=== PATIENT | female | born 1940 ===

== ENCOUNTER 2021-03-18 06:19 | Inpatient (IN) | payer MEDICARE ==
[2021-03-18] VITALS (10 sets, daily range): BP systolic 115–171; BP diastolic 44–95
[~2021-03-18] VITALS: Ht 157.4 cm; Wt 66.4 kg
[2021-03-18 08:34] LABS: BILIRUBIN Negative (Negative); BLOOD Negative (Negative); CLARITY Cloudy (Clear); COLOR Yellow (Yellow); GLUCOSE Negative (Negative); KETONE 2+ (Negative); LEUKO ESTERASE Trace (Negative); NITRITE Negative (Negative); SPECIFIC GRAVITY 1.025 (1.001-1.030); UROBILINOGEN 0.2 E.U./dl (0.0-1.0)
[2021-03-18 08:38] LABS: LYMPH # 0.6 10*3/uL (1.3-4.4); MEAN CELL VOLUME 90.7 fl (81.0-99.0); MEAN CORPUSCULAR HGB 30.1 pg (27.0-31.0); MEAN CORPUSCULAR HGB CONC 33.2 g/dl (33.0-37.0); MONO # 0.1 10*3/uL (0.1-1.0); MONO % 1.9 % (3.0-9.0); NEUT # 5.1 10*3/uL (2.3-7.9); NEUT % 87.8 % (47.0-73.0); PLATELET COUNT AUTOMATED 211 10*3/uL (130-400); RED BLOOD COUNT 4.52 10*6/uL (4.10-5.10); RED CELL DISTRI WIDTH 12.7 % (0-14.5); WHITE BLOOD COUNT 5.8 10*3/uL (4.8-10.8)
[2021-03-18 08:49] LABS: ACT PARTIAL THROMBO TIME 36.8 SECONDS (20.0-32.1); INTERNATIONAL NORM RATIO 1.1 (2.0-3.5)
[2021-03-18 08:53] LABS: ALBUMIN 2.9 gm/dl (3.1-4.5); ALKALINE PHOSPHATASE 71 U/L (45-117); BUN 14 mg/dl (7-24); CHLORIDE 100 mmol/L (98-107); CREATININE 0.78 mg/dL (0.55-1.02); LIPASE 81 U/L (73-393); POTASSIUM 3.6 mmol/L (3.5-5.1); SGOT/AST 48 IU/L (3-35); SGPT/ALT 28 U/L (12-78); SODIUM 132 mmol/L (136-145); TOTAL PROTEIN 6.7 gm/dL (6.4-8.2)
[2021-03-18 08:55] LABS: BACTERIA 1+
[2021-03-18 08:57] LABS: TROPONIN I 0.061 ng/ml (<0.045)
[2021-03-19] VITALS: BP 116/68
[2021-03-19 06:17] LABS: HEMATOCRIT 38.9 % (37.0-47.0); LYMPH # 0.9 10*3/uL (1.3-4.4); LYMPH % 13.7 % (27.0-41.0); MEAN CELL VOLUME 89.2 fl (81.0-99.0); MEAN CORPUSCULAR HGB CONC 33.7 g/dl (33.0-37.0); MEAN PLATELET VOLUME 11.3 fl (9.6-12.3); MONO # 0.3 10*3/uL (0.1-1.0); MONO % 3.6 % (3.0-9.0); NEUT # 5.7 10*3/uL (2.3-7.9); NEUT % 82.3 % (47.0-73.0); PLATELET COUNT AUTOMATED 224 10*3/uL (130-400); RED BLOOD COUNT 4.36 10*6/uL (4.10-5.10); RED CELL DISTRI WIDTH 12.7 % (0-14.5); WHITE BLOOD COUNT 6.9 10*3/uL (4.8-10.8)
[2021-03-19 06:38] LABS: CHLORIDE 101 mmol/L (98-107); POTASSIUM 3.3 mmol/L (3.5-5.1); SODIUM 133 mmol/L (136-145)
[2021-03-19 06:50] LABS: ALBUMIN 2.4 gm/dl (3.1-4.5); ALKALINE PHOSPHATASE 60 U/L (45-117); BUN 22 mg/dl (7-24); CHOLESTEROL 88 mg/dL (<200); CREATININE 0.92 mg/dL (0.55-1.02); FREE T4 1.28 ng/dl (0.76-1.46); LDL CHOLESTEROL 34 mg/dL (9-159); SGOT/AST 52 IU/L (3-35); SGPT/ALT 27 U/L (12-78); TOTAL PROTEIN 6.1 gm/dL (6.4-8.2); TRIGLYCERIDES 73 mg/dl (<150)
[2021-03-19 08:00] VITALS: BP 111/72
[2021-03-19 11:47] LABS: ABG BASE EXCESS -3.3 mmol/L (-2.0-2.0); ARTERIAL BLOOD GAS PH 7.473 (7.35-7.45); ARTERIAL BLOOD GAS PO2 80.7 (80-90)
[2021-03-19 12:00] VITALS: BP 102/63
[2021-03-19 16:00] VITALS: BP 115/79
[2021-03-19 20:00] VITALS: BP 99/65
[2021-03-20] VITALS: BP 110/66
[2021-03-20 06:26] LABS: CHLORIDE 103 mmol/L (98-107); CREATININE 1.04 mg/dL (0.55-1.02); POTASSIUM 4.1 mmol/L (3.5-5.1); SODIUM 136 mmol/L (136-145)
[2021-03-20 06:27] LABS: BUN 38 mg/dl (7-24)
[2021-03-20] MEDS ORDERED: SIMVASTATIN40 MG PO (07:03)
[2021-03-20 08:00] VITALS: BP 128/85
[2021-03-20 12:00] VITALS: BP 122/80
[2021-03-20 16:00] VITALS: BP 107/65
[2021-03-20 20:00] VITALS: BP 111/78
[2021-03-20 23:13] VITALS: BP 115/89
[2021-03-21] VITALS: BP 170/102
[2021-03-21 06:38] LABS: ALBUMIN 2.4 gm/dl (3.1-4.5); BUN 37 mg/dl (7-24); CHLORIDE 106 mmol/L (98-107); CREATININE 0.82 mg/dL (0.55-1.02); POTASSIUM 3.7 mmol/L (3.5-5.1); SGOT/AST 62 IU/L (3-35); SGPT/ALT 41 U/L (12-78); SODIUM 137 mmol/L (136-145)
[2021-03-21 06:39] LABS: ALKALINE PHOSPHATASE 70 U/L (45-117); TOTAL PROTEIN 5.8 gm/dL (6.4-8.2)
[2021-03-21 08:00] VITALS: BP 112/80
[2021-03-21 12:00] VITALS: BP 139/84
[2021-03-21 16:00] VITALS: BP 107/69
[2021-03-21 20:00] VITALS: BP 102/57; BP 139/90
[2021-03-22] VITALS: BP 132/98
[2021-03-22 04:00] VITALS: BP 137/84
[2021-03-22 05:57] LABS: ALBUMIN 2.4 gm/dl (3.1-4.5); BUN 30 mg/dl (7-24); CHLORIDE 108 mmol/L (98-107); POTASSIUM 4.1 mmol/L (3.5-5.1); SGOT/AST 61 IU/L (3-35); SGPT/ALT 42 U/L (12-78); SODIUM 139 mmol/L (136-145); TOTAL PROTEIN 5.7 gm/dL (6.4-8.2)
[2021-03-22 05:58] LABS: ALKALINE PHOSPHATASE 78 U/L (45-117); CREATININE 0.71 mg/dL (0.55-1.02)
[2021-03-22 06:03] LABS: HEMATOCRIT 40.5 % (37.0-47.0); MEAN CELL VOLUME 90.2 fl (81.0-99.0); MEAN CORPUSCULAR HGB 29.8 pg (27.0-31.0); MEAN CORPUSCULAR HGB CONC 33.1 g/dl (33.0-37.0); MEAN PLATELET VOLUME 11.6 fl (9.6-12.3); PLATELET COUNT AUTOMATED 277 10*3/uL (130-400); RED BLOOD COUNT 4.49 10*6/uL (4.10-5.10); RED CELL DISTRI WIDTH 12.7 % (0-14.5); WHITE BLOOD COUNT 7.3 10*3/uL (4.8-10.8)
[2021-03-22 06:37] LABS: ATYPICAL LYMPHS 2 % (0-0); BURR CELLS MODERATE; PLATELET SUFFICIENCY NORMAL (NORMAL); TOTAL CELLS COUNTED 100 #CELLS
[2021-03-22 06:38] LABS: OVALOCYTES FEW
[2021-03-22 07:58] VITALS: BP 131/83
[2021-03-22 12:00] VITALS: BP 127/75
[2021-03-22 16:00] VITALS: BP 147/80
[2021-03-22 20:00] VITALS: BP 158/84
[2021-03-23] VITALS: BP 152/98
[2021-03-23 04:00] VITALS: BP 152/91
[2021-03-23 08:00] VITALS: BP 148/93
[2021-03-23 12:00] VITALS: BP 155/89
[2021-03-23 13:02] LABS: MEAN CORPUSCULAR HGB CONC 33.7 g/dl (33.0-37.0); PLATELET COUNT AUTOMATED 301 10*3/uL (130-400); RED BLOOD COUNT 4.27 10*6/uL (4.10-5.10); RED CELL DISTRI WIDTH 12.9 % (0-14.5)
[2021-03-23 13:22] LABS: ATYPICAL LYMPHS 2 % (0-0); OVALOCYTES FEW; SCHISTOCYTES FEW; TOTAL CELLS COUNTED 100 #CELLS
[2021-03-23 13:23] LABS: ALBUMIN 2.4 gm/dl (3.1-4.5); ALKALINE PHOSPHATASE 99 U/L (45-117); BUN 25 mg/dl (7-24); BURR CELLS FEW; CHLORIDE 109 mmol/L (98-107); CREATININE 0.81 mg/dL (0.55-1.02); PLATELET SUFFICIENCY NORMAL (NORMAL); POTASSIUM 3.8 mmol/L (3.5-5.1); SGOT/AST 39 IU/L (3-35); SGPT/ALT 41 U/L (12-78); SODIUM 142 mmol/L (136-145); TOTAL PROTEIN 5.8 gm/dL (6.4-8.2)
[2021-03-23 15:50] LABS: ARTERIAL BLOOD GAS PH 7.513 (7.35-7.45); ARTERIAL BLOOD GAS PO2 60.7 (80-90)
[2021-03-23 16:00] VITALS: BP 148/82
[2021-03-23 20:00] VITALS: BP 149/98
[2021-03-24] VITALS: BP 106/69
[2021-03-24 04:00] VITALS: BP 108/71
[2021-03-24 05:56] LABS: ALBUMIN 2.1 gm/dl (3.1-4.5); ALKALINE PHOSPHATASE 92 U/L (45-117); BUN 25 mg/dl (7-24); CHLORIDE 111 mmol/L (98-107); CREATININE 0.64 mg/dL (0.55-1.02); POTASSIUM 3.6 mmol/L (3.5-5.1); SGOT/AST 29 IU/L (3-35); SGPT/ALT 37 U/L (12-78); SODIUM 139 mmol/L (136-145); TOTAL PROTEIN 5.3 gm/dL (6.4-8.2)
[2021-03-24 06:12] LABS: HEMATOCRIT 36.7 % (37.0-47.0); MEAN CORPUSCULAR HGB 30.1 pg (27.0-31.0); MEAN CORPUSCULAR HGB CONC 32.7 g/dl (33.0-37.0); MEAN PLATELET VOLUME 11.9 fl (9.6-12.3); PLATELET COUNT AUTOMATED 244 10*3/uL (130-400); RED BLOOD COUNT 3.99 10*6/uL (4.10-5.10); WHITE BLOOD COUNT 7.2 10*3/uL (4.8-10.8)
[2021-03-24 06:47] LABS: OVALOCYTES FEW; PLATELET SUFFICIENCY NORMAL (NORMAL); POLYCHROMASIA SLIGHT; SCHISTOCYTES FEW; TOTAL CELLS COUNTED 100 #CELLS
[2021-03-24 06:48] LABS: BURR CELLS MODERATE
[2021-03-24 08:00] VITALS: BP 133/83
[2021-03-24 12:00] VITALS: BP 141/81
[2021-03-24 16:00] VITALS: BP 144/91
[2021-03-24 20:00] VITALS: BP 131/84
[2021-03-25] VITALS: BP 112/83
[2021-03-25 04:00] VITALS: BP 148/90
[2021-03-25 05:23] LABS: ALBUMIN 2.1 gm/dl (3.1-4.5); BUN 23 mg/dl (7-24); CHLORIDE 109 mmol/L (98-107); CREATININE 0.68 mg/dL (0.55-1.02); POTASSIUM 3.6 mmol/L (3.5-5.1); SGOT/AST 25 IU/L (3-35); SGPT/ALT 34 U/L (12-78); SODIUM 140 mmol/L (136-145); TOTAL PROTEIN 5.3 gm/dL (6.4-8.2)
[2021-03-25 05:24] LABS: ALKALINE PHOSPHATASE 99 U/L (45-117)
[2021-03-25 06:25] LABS: MEAN CELL VOLUME 89.8 fl (81.0-99.0); MEAN CORPUSCULAR HGB 29.6 pg (27.0-31.0); MEAN PLATELET VOLUME 11.6 fl (9.6-12.3); PLATELET COUNT AUTOMATED 269 10*3/uL (130-400); RED BLOOD COUNT 4.12 10*6/uL (4.10-5.10); RED CELL DISTRI WIDTH 12.9 % (0-14.5); WHITE BLOOD COUNT 5.3 10*3/uL (4.8-10.8)
[2021-03-25 07:25] LABS: ATYPICAL LYMPHS 2 % (0-0); TOTAL CELLS COUNTED 100 #CELLS
[2021-03-25 07:26] LABS: BURR CELLS FEW; OVALOCYTES FEW; PLATELET SUFFICIENCY NORMAL (NORMAL); POLYCHROMASIA SLIGHT; SCHISTOCYTES FEW
[2021-03-25 08:00] VITALS: BP 152/103
[2021-03-25 12:00] VITALS: BP 138/89
[2021-03-25 16:00] VITALS: BP 144/89
[2021-03-25 20:00] VITALS: BP 147/90
[2021-03-26] VITALS: BP 143/92
[2021-03-26 04:00] VITALS: BP 160/88
[2021-03-26 06:10] LABS: HEMATOCRIT 37.7 % (37.0-47.0); MEAN CELL VOLUME 92.2 fl (81.0-99.0); MEAN CORPUSCULAR HGB 30.1 pg (27.0-31.0); MEAN CORPUSCULAR HGB CONC 32.6 g/dl (33.0-37.0); MEAN PLATELET VOLUME 11.6 fl (9.6-12.3); PLATELET COUNT AUTOMATED 251 10*3/uL (130-400); RED BLOOD COUNT 4.09 10*6/uL (4.10-5.10); RED CELL DISTRI WIDTH 12.9 % (0-14.5); WHITE BLOOD COUNT 6.2 10*3/uL (4.8-10.8)
[2021-03-26 06:15] LABS: ALBUMIN 2.1 gm/dl (3.1-4.5); BUN 23 mg/dl (7-24); CHLORIDE 109 mmol/L (98-107); CREATININE 0.69 mg/dL (0.55-1.02); SGPT/ALT 30 U/L (12-78); SODIUM 140 mmol/L (136-145); TOTAL PROTEIN 5.2 gm/dL (6.4-8.2)
[2021-03-26 06:41] LABS: ALKALINE PHOSPHATASE 93 U/L (45-117); SGOT/AST 21 IU/L (3-35)
[2021-03-26 07:44] LABS: BURR CELLS MODERATE; PLATELET SUFFICIENCY NORMAL (NORMAL); TOTAL CELLS COUNTED 100 #CELLS
[2021-03-26 08:00] VITALS: BP 170/102
[2021-03-26 12:00] VITALS: BP 145/88
[2021-03-26 16:00] VITALS: BP 152/90
[2021-03-26 20:00] VITALS: BP 165/102
[2021-03-27] VITALS: BP 133/75
[2021-03-27 04:00] VITALS: BP 159/91
[2021-03-27 05:21] LABS: BUN 22 mg/dl (7-24); CHLORIDE 107 mmol/L (98-107); CREATININE 0.67 mg/dL (0.55-1.02); POTASSIUM 4.1 mmol/L (3.5-5.1); SGOT/AST 25 IU/L (3-35); SGPT/ALT 28 U/L (12-78); SODIUM 139 mmol/L (136-145)
[2021-03-27 05:22] LABS: ALKALINE PHOSPHATASE 89 U/L (45-117); TOTAL PROTEIN 5.3 gm/dL (6.4-8.2)
[2021-03-27 06:20] LABS: HEMATOCRIT 37.9 % (37.0-47.0); MEAN CELL VOLUME 91.3 fl (81.0-99.0); MEAN CORPUSCULAR HGB 29.9 pg (27.0-31.0); MEAN CORPUSCULAR HGB CONC 32.7 g/dl (33.0-37.0); MEAN PLATELET VOLUME 12.1 fl (9.6-12.3); PLATELET COUNT AUTOMATED 274 10*3/uL (130-400); RED BLOOD COUNT 4.15 10*6/uL (4.10-5.10); WHITE BLOOD COUNT 7.8 10*3/uL (4.8-10.8)
[2021-03-27 07:18] LABS: PLATELET SUFFICIENCY NORMAL (NORMAL); POLYCHROMASIA SLIGHT; TOTAL CELLS COUNTED 100 #CELLS
[2021-03-27 07:19] LABS: BURR CELLS FEW; OVALOCYTES FEW
[2021-03-27 08:00] VITALS: BP 149/92
[2021-03-27 12:00] VITALS: BP 125/84
[2021-03-27 16:00] VITALS: BP 157/98
[2021-03-27 20:00] VITALS: BP 142/62
[2021-03-28] VITALS: BP 154/90
[2021-03-28 04:00] VITALS: BP 159/97
[2021-03-28 04:49] LABS: HEMATOCRIT 40.2 % (37.0-47.0); MEAN CELL VOLUME 92.2 fl (81.0-99.0); MEAN CORPUSCULAR HGB CONC 32.6 g/dl (33.0-37.0); MEAN PLATELET VOLUME 10.8 fl (9.6-12.3); PLATELET COUNT AUTOMATED 280 10*3/uL (130-400); RED BLOOD COUNT 4.36 10*6/uL (4.10-5.10); RED CELL DISTRI WIDTH 13.1 % (0-14.5); WHITE BLOOD COUNT 11.2 10*3/uL (4.8-10.8)
[2021-03-28 05:07] LABS: BUN 21 mg/dl (7-24); CHLORIDE 108 mmol/L (98-107); CREATININE 0.83 mg/dL (0.55-1.02); POTASSIUM 4.3 mmol/L (3.5-5.1); SODIUM 139 mmol/L (136-145)
[2021-03-28 06:09] LABS: ATYPICAL LYMPHS 1 % (0-0); BURR CELLS FEW; OVALOCYTES FEW; PLATELET SUFFICIENCY NORMAL (NORMAL); POLYCHROMASIA SLIGHT; TOTAL CELLS COUNTED 100 #CELLS
[2021-03-28 06:10] LABS: VACUOLATION OF NEUTROPHILS SLIGHT
[2021-03-28 08:00] VITALS: BP 155/95
[2021-03-28 12:00] VITALS: BP 133/91
[2021-03-28 14:22] LABS: ABG BASE EXCESS 0.3 mmol/L (-2.0-2.0); ARTERIAL BLOOD GAS PH 7.52 (7.35-7.45); ARTERIAL BLOOD GAS PO2 66.3 (80-90)
[2021-03-28 16:00] VITALS: BP 109/53; BP 131/86
[2021-03-28 20:00] VITALS: BP 112/74
[2021-03-29] VITALS: BP 137/92
[2021-03-29 04:00] VITALS: BP 130/90
[2021-03-29 06:28] LABS: HEMATOCRIT 37.7 % (37.0-47.0); MEAN CELL VOLUME 92.2 fl (81.0-99.0); MEAN CORPUSCULAR HGB 29.8 pg (27.0-31.0); MEAN CORPUSCULAR HGB CONC 32.4 g/dl (33.0-37.0); MEAN PLATELET VOLUME 11.7 fl (9.6-12.3); PLATELET COUNT AUTOMATED 245 10*3/uL (130-400); RED BLOOD COUNT 4.09 10*6/uL (4.10-5.10); RED CELL DISTRI WIDTH 13.2 % (0-14.5); WHITE BLOOD COUNT 10.5 10*3/uL (4.8-10.8)
[2021-03-29 06:38] LABS: BUN 19 mg/dl (7-24); CHLORIDE 108 mmol/L (98-107); CREATININE 0.63 mg/dL (0.55-1.02); SODIUM 139 mmol/L (136-145)
[2021-03-29 07:09] LABS: ATYPICAL LYMPHS 1 % (0-0); BURR CELLS MODERATE; OVALOCYTES FEW; POLYCHROMASIA SLIGHT; SCHISTOCYTES FEW; TOTAL CELLS COUNTED 100 #CELLS
[2021-03-29 07:10] LABS: PLATELET SUFFICIENCY NORMAL (NORMAL)
[2021-03-29 08:00] VITALS: BP 141/93
[2021-03-29 12:00] VITALS: BP 126/71
[2021-03-29 16:00] VITALS: BP 126/77
[2021-03-29 20:00] VITALS: BP 118/78
[2021-03-30] VITALS: BP 167/90
[2021-03-30 04:00] VITALS: BP 140/95
[2021-03-30 05:42] LABS: ALBUMIN 1.9 gm/dl (3.1-4.5); BUN 19 mg/dl (7-24); CHLORIDE 107 mmol/L (98-107); POTASSIUM 4.3 mmol/L (3.5-5.1); SGOT/AST 32 IU/L (3-35); SODIUM 137 mmol/L (136-145)
[2021-03-30 05:45] LABS: ALKALINE PHOSPHATASE 77 U/L (45-117); CREATININE 0.66 mg/dL (0.55-1.02); SGPT/ALT 45 U/L (12-78); TOTAL PROTEIN 5.4 gm/dL (6.4-8.2)
[2021-03-30 06:19] LABS: BASO % 0.2 % (0.0-1.0); HEMATOCRIT 37.6 % (37.0-47.0); LYMPH # 1.1 10*3/uL (1.3-4.4); LYMPH % 10.1 % (27.0-41.0); MEAN CELL VOLUME 92.8 fl (81.0-99.0); MEAN CORPUSCULAR HGB 29.9 pg (27.0-31.0); MEAN CORPUSCULAR HGB CONC 32.2 g/dl (33.0-37.0); MEAN PLATELET VOLUME 12.2 fl (9.6-12.3); MONO # 0.4 10*3/uL (0.1-1.0); MONO % 3.7 % (3.0-9.0); NEUT # 8.9 10*3/uL (2.3-7.9); NEUT % 83.7 % (47.0-73.0); PLATELET COUNT AUTOMATED 232 10*3/uL (130-400); RED BLOOD COUNT 4.05 10*6/uL (4.10-5.10); RED CELL DISTRI WIDTH 13.5 % (0-14.5); WHITE BLOOD COUNT 10.6 10*3/uL (4.8-10.8)
[2021-03-30 08:00] VITALS: BP 165/97
[2021-03-30 12:00] VITALS: BP 116/62
[2021-03-30] MEDS ORDERED: METOPROLOL SUCC25 M2 PO (14:16)
[2021-03-30] MEDS ORDERED: Protonix IV (14:16)
[2021-03-30] MEDS ORDERED: Decadron IV (14:16)
[2021-03-30 16:00] VITALS: BP 125/66
== END 2021-03-30 20:05 | DRG 871 ==
LOC: ED 06:19 → EDHOLD 11:22 → ICCU 11:22 → 4E 11:22 → EDHOLD 11:31 → 4E 17:19 → ICCU 03-21 12:08
PROVIDERS: Emergency Medicine; Internal Medicine; Internal Medicine Critical Care Medicine; Student in an Organized Health Care Education/Training Program; ADMIT Internal Medicine; ATTEND Internal Medicine
PROC: XW033E5 Introduction of Remdesivir Anti-infective into Peripheral Vein, Percutaneous Approach, New Technology Group 5 (ICD-10-PCS; principal; 2021-03-19)
PROC: 5A0945A Assistance with Respiratory Ventilation, 24-96 Consecutive Hours, High Flow/Velocity Cannula (ICD-10-PCS; 2021-03-19)
PROC: 5A09457 Assistance with Respiratory Ventilation, 24-96 Consecutive Hours, Continuous Positive Airway Pressure (ICD-10-PCS; 2021-03-20)
PROC: 5A09457 Assistance with Respiratory Ventilation, 24-96 Consecutive Hours, Continuous Positive Airway Pressure (ICD-10-PCS; 2021-03-24)
PROC: 5A0935A Assistance with Respiratory Ventilation, Less than 24 Consecutive Hours, High Flow/Velocity Cannula (ICD-10-PCS; 2021-03-24)
PROC: 05HY33Z Insertion of Infusion Device into Upper Vein, Percutaneous Approach (ICD-10-PCS; 2021-03-24)
PROC: 5A09357 Assistance with Respiratory Ventilation, Less than 24 Consecutive Hours, Continuous Positive Airway Pressure (ICD-10-PCS; 2021-03-29)
PROC: 5A0935A Assistance with Respiratory Ventilation, Less than 24 Consecutive Hours, High Flow/Velocity Cannula (ICD-10-PCS; 2021-03-29)
PROC: 5A09357 Assistance with Respiratory Ventilation, Less than 24 Consecutive Hours, Continuous Positive Airway Pressure (ICD-10-PCS; 2021-03-30)
PROC: 5A0935A Assistance with Respiratory Ventilation, Less than 24 Consecutive Hours, High Flow/Velocity Cannula (ICD-10-PCS; 2021-03-30)
DX: A41.9 Sepsis, unspecified organism (principal); U07.1 COVID-19; J80 Acute respiratory distress syndrome; J12.82 Pneumonia due to coronavirus disease 2019; E87.1 Hypo-osmolality and hyponatremia; E44.0 Moderate protein-calorie malnutrition; I10 Essential (primary) hypertension; I08.3 Combined rheumatic disorders of mitral, aortic and tricuspid valves; Z20.822 Contact with and (suspected) exposure to COVID-19; I48.91 Unspecified atrial fibrillation; E78.5 Hyperlipidemia, unspecified; R73.9 Hyperglycemia, unspecified; Z87.891 Personal history of nicotine dependence; Z68.27 Body mass index [BMI] 27.0-27.9, adult